=== PATIENT | female | born 1955 | race Two or more races ===

== ENCOUNTER 2018-11-06 16:47 | Inpatient (IN) | payer BC ==
[~2018-11-06] VITALS: Ht 167.6 cm; Wt 72.1 kg
[2018-11-06 18:43] VITALS: BP 155/67; PULSE 86; RESP 18
[2018-11-06 18:53] VITALS: BP 155/67; PULSE 82; RESP 16
[2018-11-06 19:52] VITALS: Ht 167.6 cm; Wt 72.1 kg
[2018-11-06] MEDS ORDERED: morphine 2 MG INJ IV PRN (20:00)
[2018-11-06] MEDS ORDERED: hydrALAzine 20 MG INJ IV PRN (20:00)
[2018-11-06] MEDS ORDERED: ONDANSETRON 4 MG INJ IV PRN (20:00)
[2018-11-06 20:22] VITALS: BP 152/72; PULSE 80; RESP 18
[2018-11-06] MEDS: DEXTROSE 5%-0.45% NACL 1,000 ML IV SCH (21:07)
[2018-11-07 02:24] VITALS: BP 148/71; RESP 18
[2018-11-07] MEDS: PANTOPRAZOLE 40 MG INJ IV SCH (06:08)
[2018-11-07 08:20] VITALS: BP 136/65; PULSE 75; RESP 18
[2018-11-07] MEDS: DEXTROSE 5%-0.45% NACL 1,000 ML IV SCH ×2 (10:18→10:56)
[2018-11-07 14:00] VITALS: BP 155/72; PULSE 75; RESP 18
--- NOTE | 2018-11-07 14:00 | HP ---
DOMINGO MARTINEZ 11/07/18 1400: Date/Time of Note Date/Time of Note DATE: 11/07/18 TIME: 14:00 Assessment/Plan VTE Prophylaxis Risk score (from [facility])>0 risk: 3 SCD applied (from [facility]): Yes Pharmacological prophylaxis: NA/contraindicated Pharm contraindication: low risk/ambulating Lines/Catheters IV Catheter Type (from [facility]): Saline [place] Assessment/Plan Hospital Course 1. Resolving SBO 2. Normocytic normochromic anemia 3. Hypertension 4. RADHA, today cr. 1.1, unknown the baseline. This visit is first to this hospital. Per reccord review pt has creatinine was 1.2 on 11/05/2018 5. Hx of hysterectomy and hernia repair 6. Hx of gastric bypass 7. Hx of peritonitis 8. former smoker Assessment/Plan -GI prophylaxis Protonix po _GI consult dr Coates -DVT prophylaxis SCD -pain control -clear liquid diet -last stool 11/03, pt is passing gas -IV fluids D5 NS -Dr Cano is a surgical consult -ambulate TID Result Diagram: 11/07/18 0445 11/07/18 0445 Results 24hrs Laboratory Tests Test 11/07/18 04:45 White Blood Count 9.0 Red Blood Count 3.99 L Hemoglobin 11.8 L Hematocrit 36.2 L Mean Corpuscular Volume 90.7 Mean Corpuscular Hemoglobin 29.6 Mean Corpuscular Hemoglobin Concent 32.6 Red Cell Distribution Width 12.5 Platelet Count 250 Mean Platelet Volume 10.0 Immature Granulocytes % 0.300 Neutrophils % 59.1 Lymphocytes % 31.7 Monocytes % 6.7 Eosinophils % 2.0 Basophils % 0.2 Nucleated Red Blood Cells % 0.0 Immature Granulocytes # 0.030 Neutrophils # 5.3 Lymphocytes # 2.9 Monocytes # 0.6 Eosinophils # 0.2 Basophils # 0.0 Nucleated Red Blood Cells # 0.0 Sodium Level 143 Potassium Level 4.2 Chloride Level 111 H Carbon Dioxide Level 27 Anion Gap 5 Blood Urea Nitrogen 17 Creatinine 1.11 H Est Glomerular Filtrat Rate mL/min 49 L Glucose Level 100 Calcium Level 8.7 HPI/ROS Admit Date/Time Admit Date/Time Nov 06, 2018 at 18:31 Hx of Present Illness This 63 y,o female was transferred from [facility] on 11/07/2018 per insurance purposes. She has medical history of hypertension, hx of gastric bypass, colostomy, 2 hernia repair and hysterectomy. Pt was seen in [facility] on because of abdominal pain. Pt. was kept NPO there, she refused NG tube, CT scan abdomen showed filled intestines with fluid level and evidence of previous surgeries. laboratory results revealed anemia with Hg 11.8 and elevated cr. 1.2 on 11/05/2018 ROS Gastrointestinal: nausea, passing stool (small today) PMH/Family/Social Past Medical History Medical History: hypertension Medications Current Medications Dextrose/Sodium Chloride 1,000 ml @ 70 mls/hr [id number] IV Last administered on 11/07/18at 10:56; Admin Dose 70 MLS/HR; Start 11/06/18 at 20:00 Ondansetron HCl (Zofran Inj) 4 mg Q6H PRN IV NAUSEA AND/OR VOMITING; Start 11/06/18 at 20:00 Morphine Sulfate (morphine) 2 mg Q4H PRN IV SEVERE PAIN LEVEL 7-10; Start 11/06/18 at 20:00 Pantoprazole (Protonix Iv) 40 mg DAILY@06 IV Last administered on 11/07/18at 06:08; Admin Dose 40 MG; Start 11/07/18 at 06:00 Hydralazine HCl (Apresoline) 5 mg Q6H PRN IV ELEVATED BLOOD PRESSURE; Start 11/06/18 at 20:00 Coded Allergies: No Known Allergy (Unverified , 11/06/18) Past Surgical History Past Surgical Hx: other (hysterectomy and hernia repair) Family History Significant Family History: no pertinent family hx Social History Alcohol Use: none Smoking Status: Former smoker Drug Use: none Exam/Review of Systems Vital Signs Vitals Vital Signs Date Temp Pulse Resp B/P (MAP) Pulse Ox O2 O2 Flow FiO2 Time Delivery Rate 11/07/18 98.0 75 18 136/65 96 Room Air 08:20 (88) Intake and Output 11/06/18 11/06/18 11/07/18 1515:00 23:00 07:00 IntakeIntake Total 560 ml BalanceBalance 560 ml Exam Constitutional: alert, oriented Psych: no complaints ENMT: nl external ears & nose Neck: supple Respiratory: clear to auscultation, normal air movement Cardiovascular: regular rate and rhythm Gastrointestinal: soft, rebound or guarding, splenomegaly, surgical scars Genitourinary - Female: CVA tenderness; No nl adnexae, No nl external genitalia, No CMT, No uterus, No other ECTOR JOHNS MD 11/08/18 1618: Assessment/Plan Assessment/Plan Assessment/Plan seen and examined with TAPE TRANSFERRER NPO iv fluids gi/surgery consult Result Diagram: 11/07/18 0445 11/07/18 0445 PMH/Family/Social Past Medical History Coded Allergies: No Known Allergy (Unverified , 11/06/18) DOMINGO MARTINEZ Nov 07, 2018 14:00 ECTOR JOHNS MD Nov 08, 2018 16:18
[2018-11-07] MEDS ORDERED: BISACODYL 10 MG SUPP PR STA (14:36)
[2018-11-07 20:40] VITALS: BP 132/78; PULSE 77; RESP 20
--- NOTE | 2018-11-07 20:48 | CONS ---
DATE OF ADMISSION: 11/06/2018 DATE OF CONSULTATION: Dear Dr. Walls: Thank you for asking me to see your patient in consultation. HISTORY OF PRESENT ILLNESS: The patient is a 63-year-old pleasant Gren[place] female who was originally at [facility] for abdominal pain and nausea. The patient was diagnosed to have a small-bowel obstruction. She declined NG tube and was subsequently transferred to this facility for further man agement. The patient was interrogated with the by her side. The spoke Tajik. He says no nausea, no vomiting. She definitely passed a flatus. Abdominal pain is very minimal. No ch est pain, no shortness of breath, no fever, no or CASE MANAGER problem. PAST MEDICAL HISTORY: The patient had multiple surgeries on her lower abdomen secondary to hernia. She also had a gastric bypass surgery. History of hypertension. SOCIAL HISTORY: Former smoker, does not drink alcohol, no recreational drug. PHYSICAL EXAMINATION: VITAL SIGNS: Stable. GENERAL: Pleasant, not in any distress. CARDIOVASCULAR: No murmur, gallop or click. LUNGS: Clear. ABDOMEN: Soft. Midline surgical scar seen extending from the umbilicus down to the suprapubic. [place] el sounds heard. Abdomen is nondistended, nontender. EXTREMITIES: No edema. CENTRAL NERVOUS SYSTEM: Grossly within normal limits. LABORATORY DATA: CBC is stable. BNP is grossly within normal limits except for the GFR which is 45. IMPRESSION: 1. Small-bowel obstruction, clinically seems to have improved. 2. Normochromic normocytic anemia. 3. Mild renal insufficiency. 4. Hypertension. 5. Status post gastric bypass surgery. 6. History of peritonitis in the past. 7. Status post hysterectomy and hernia repair. 8. History of nicotine usage. PLAN: At this point, we will give her Dulcolax suppository. If she has a good bowel movement, then we will start her on a clear liquid diet and advance it as tolerated by the patient. In the interim, we will get a KUB done to make sure that the small-bowel obstruction has improved. Dictated By: KATRINA GILL/NTS Conf#: [id number] DID#: [id number] CC: ECTOR JOHNS; NIKA WALLS MD;*End*
[2018-11-08] MEDS: DEXTROSE 5%-0.45% NACL 1,000 ML IV SCH ×2 (00:44→16:18)
[2018-11-08 02:10] VITALS: BP 135/76; PULSE 71; RESP 20
[2018-11-08] MEDS: PANTOPRAZOLE 40 MG INJ IV SCH (05:36)
[2018-11-08 08:01] VITALS: BP 138/63; PULSE 63; RESP 18
--- NOTE | 2018-11-08 12:24 | PN ---
DOMINGO ESCOBAR 11/08/18 1224: Date/Time of Note Date/Time of Note DATE: 11/08/18 TIME: 12:22 Assessment/Plan VTE Prophylaxis Risk score (from Ns)>0 risk: 3 SCD applied (from [facility] [place] [facility]): No SCD contraindicated: low risk/ambulating Pharmacological prophylaxis: NA/contraindicated Pharm contraindication: low risk/ambulating Lines/Catheters IV Catheter Type (from [facility]): Peripheral IV Assessment/Plan Hospital Course 1. Resolving SBO 2. Normocytic normochromic anemia 3. Hypertension 4. RADHA, today cr. 1.1, unknown the baseline. This visit is [facility] to [facility]. Per record review pt has creatinine was 1.2 on 11/05/2018 5. Hx of hysterectomy and hernia repair 6. Hx of gastric bypass 7. Hx of peritonitis 8. former smoker Assessment/Plan -creatinine goes down -KUB abdomen pending, pt is still NPO -GI prophylaxis Protonix po -GI consult dr Coates is appreciated -DVT prophylaxis SCD -pain control -last stool 11/03, pt is passing gas -c/w IV fluids D5 NS -Dr Cano is a surgical consult unable to see her -ambulate TID Result Diagram: 11/08/18 0442 11/08/18 0442 Results 24hrs Laboratory Tests Test 11/08/18 04:42 White Blood Count 9.8 Red Blood Count 3.93 L Hemoglobin 11.7 L Hematocrit 35.3 L Mean Corpuscular Volume 89.8 Mean Corpuscular Hemoglobin 29.8 Mean Corpuscular Hemoglobin Concent 33.1 Red Cell Distribution Width 12.3 Platelet Count 248 Mean Platelet Volume 10.2 Immature Granulocytes % 0.200 Neutrophils % 63.7 Lymphocytes % 27.9 Monocytes % 5.8 Eosinophils % 2.2 Basophils % 0.2 Nucleated Red Blood Cells % 0.0 Immature Granulocytes # 0.020 Neutrophils # 6.2 Lymphocytes # 2.7 Monocytes # 0.6 Eosinophils # 0.2 Basophils # 0.0 Nucleated Red Blood Cells # 0.0 Sodium Level 143 Potassium Level 4.2 Chloride Level 111 H Carbon Dioxide Level 28 Anion Gap 4 L Blood Urea Nitrogen 14 Creatinine 1.02 H Est Glomerular Filtrat Rate mL/min 54 L Glucose Level 102 Calcium Level 8.9 Subjective 24 Hr Interval Summary Gastrointestinal: constipation ( 5 days) Exam/Review of Systems Exam Vitals Vital Signs Date Temp Pulse Resp B/P (MAP) Pulse Ox O2 O2 Flow FiO2 Time Delivery Rate 11/08/18 97.8 63 18 138/63 93 08:01 (88) 11/07/18 Room Air 08:20 Intake and Output 11/07/18 11/07/18 11/08/18 1515:00 23:00 07:00 IntakeIntake Total 440 ml 1300 ml BalanceBalance 440 ml 1300 ml Constitutional: alert, oriented Respiratory: clear to auscultation Cardiovascular: regular rate and rhythm Gastrointestinal: soft, nl liver, spleen, non-tender, ascites, bowel sounds (4 quadrants), distended, firm, hepatomegaly, mass, rebound or guarding, splenomegaly, surgical scars, tender, other Results Result Diagram: 11/08/182 11/08/18 0442 Results 24hrs Laboratory Tests Test 11/08/18 04:42 White Blood Count 9.8 Red Blood Count 3.93 L Hemoglobin 11.7 L Hematocrit 35.3 L Mean Corpuscular Volume 89.8 Mean Corpuscular Hemoglobin 29.8 Mean Corpuscular Hemoglobin Concent 33.1 Red Cell Distribution Width 12.3 Platelet Count 248 Mean Platelet Volume 10.2 Immature Granulocytes % 0.200 Neutrophils % 63.7 Lymphocytes % 27.9 Monocytes % 5.8 Eosinophils % 2.2 Basophils % 0.2 Nucleated Red Blood Cells % 0.0 Immature Granulocytes # 0.020 Neutrophils # 6.2 Lymphocytes # 2.7 Monocytes # 0.6 Eosinophils # 0.2 Basophils # 0.0 Nucleated Red Blood Cells # 0.0 Sodium Level 143 Potassium Level 4.2 Chloride Level 111 H Carbon Dioxide Level 28 Anion Gap 4 L Blood Urea Nitrogen 14 Creatinine 1.02 H Est Glomerular Filtrat Rate mL/min 54 L Glucose Level 102 Calcium Level 8.9 Medications Medication Current Medications Dextrose/Sodium Chloride 1,000 ml @ 70 mls/hr [id number] IV Last administered on 11/08/18at 00:44; Admin Dose 70 MLS/HR; Start 11/06/18 at 20:00 Ondansetron HCl (Zofran Inj) 4 mg Q6H PRN IV NAUSEA AND/OR VOMITING; Start 11/06/18 at 20:00 Morphine Sulfate (morphine) 2 mg Q4H PRN IV SEVERE PAIN LEVEL 7-10; Start 11/06/18 at 20:00 Pantoprazole (Protonix Iv) 40 mg DAILY@06 IV Last administered on 11/08/18at 05:36; Admin Dose 40 MG; Start 11/07/18 at 06:00 Hydralazine HCl (Apresoline) 5 mg Q6H PRN IV ELEVATED BLOOD PRESSURE; Start 11/06/18 at 20:00 ECTOR JOHNS MD 11/08/18 1617: Assessment/Plan Assessment/Plan Assessment/Plan doing well kusourav neg advance clears, spoke to dr coates Result Diagram: 11/08/18 0442 11/08/18 0442 DOMINGO MARTINEZ Nov 08, 2018 12:24 ECTOR JOHNS MD Nov 08, 2018 16:17
[2018-11-08 15:18] VITALS: BP 159/72; PULSE 62; RESP 18
--- NOTE | 2018-11-08 17:49 | CONS ---
Assessment/Plan Assessment/Plan Hospital Course (Demo Recall) Interval Hx- The patient is a 63-year-old pleasant Estonian female who was originally at [facility] for abdominal pain and nausea. The patient was diagnosed to have a small-bowel obstruction. She declined NG tube and was subsequently transferred to this facility for further management. IMPRESSION: 1. Small-bowel obstruction, clinically seems to have improved, had one soft BM after suppository per patient. 2. Normochromic normocytic anemia. 3. Mild renal insufficiency. 4. Hypertension. 5. Status post gastric bypass surgery. 6. History of peritonitis in the past. 7. Status post hysterectomy and hernia repair. 8. History of nicotine usage. PLAN: At this point, we will continue to monitor the patient X ray abdomen-unremarkable On ice chips-tolerating PP- GI prophylaxis Antiemetics Consultation Date/Type/Reason Admit Date/Time Nov 06, 2018 at 18:31 Initial Consult Date Date/Time of Note DATE: 11/08/18 TIME: 17:42 Exam/Review of Systems Exam Vitals Vital Signs Date Temp Pulse Resp B/P (MAP) Pulse Ox O2 O2 Flow FiO2 Time Delivery Rate 11/08/18 97.8 62 18 159/72 95 15:18 (101) 11/07/18 Room Air 08:20 Intake and Output 11/07/18 11/07/18 11/08/18 1515:00 23:00 07:00 IntakeIntake Total 440 ml 1300 ml BalanceBalance 440 ml 1300 ml Constitutional: alert, oriented, well developed Psych: no complaints Head: normocephalic, atraumatic Eyes: nl conjunctiva, EOMI ENMT: nl external ears & nose Neck: supple Respiratory: clear to auscultation, normal air movement Cardiovascular: regular rate and rhythm, nl pulses Gastrointestinal: soft, non-tender, surgical scars (mid abdomen) Musculoskeletal: nl extremities to inspection Extremities: normal pulses Neurological: INFECTION PREVENTIONIST II-XII intact Skin: nl turgor Lymph: nl lymph nodes Results Result Diagram: 11/08/182 11/08/182 Results 24hrs Laboratory Tests Test 11/08/18 04:42 White Blood Count 9.8 Red Blood Count 3.93 L Hemoglobin 11.7 L Hematocrit 35.3 L Mean Corpuscular Volume 89.8 Mean Corpuscular Hemoglobin 29.8 Mean Corpuscular Hemoglobin Concent 33.1 Red Cell Distribution Width 12.3 Platelet Count 248 Mean Platelet Volume 10.2 Immature Granulocytes % 0.200 Neutrophils % 63.7 Lymphocytes % 27.9 Monocytes % 5.8 Eosinophils % 2.2 Basophils % 0.2 Nucleated Red Blood Cells % 0.0 Immature Granulocytes # 0.020 Neutrophils # 6.2 Lymphocytes # 2.7 Monocytes # 0.6 Eosinophils # 0.2 Basophils # 0.0 Nucleated Red Blood Cells # 0.0 Sodium Level 143 Potassium Level 4.2 Chloride Level 111 H Carbon Dioxide Level 28 Anion Gap 4 L Blood Urea Nitrogen 14 Creatinine 1.02 H Est Glomerular Filtrat Rate mL/min 54 L Glucose Level 102 Calcium Level 8.9 Medications Medication Current Medications Dextrose/Sodium Chloride 1,000 ml @ 70 mls/hr [id number] IV Last administered on 11/08/18at 16:18; Admin Dose 70 MLS/HR; Start 11/06/18 at 20:00 Ondansetron HCl (Zofran Inj) 4 mg Q6H PRN IV NAUSEA AND/OR VOMITING; Start 11/06/18 at 20:00 Morphine Sulfate (morphine) 2 mg Q4H PRN IV SEVERE PAIN LEVEL 7-10; Start 11/06/18 at 20:00 Pantoprazole (Protonix Iv) 40 mg DAILY@06 IV Last administered on 11/08/18at 05:36; Admin Dose 40 MG; Start 11/07/18 at 06:00 Hydralazine HCl (Apresoline) 5 mg Q6H PRN IV ELEVATED BLOOD PRESSURE; Start 11/06/18 at 20:00 GILL BAIG NP Nov 08, 2018 17:49
[2018-11-08 19:27] VITALS: BP 137/67; PULSE 77; RESP 16
[2018-11-09 01:32] VITALS: BP 160/73; PULSE 63; RESP 16
[2018-11-09] MEDS: PANTOPRAZOLE 40 MG INJ IV SCH (05:31)
[2018-11-09] MEDS: DEXTROSE 5%-0.45% NACL 1,000 ML IV SCH (05:31)
[2018-11-09 07:30] VITALS: BP 140/63; PULSE 58; RESP 18
--- NOTE | 2018-11-09 08:09 | CONS ---
Assessment/Plan Assessment/Plan Hospital Course (Demo Recall) 63 yo female presented from OSH with SBO Interval hx: pt states she is passing gas. Tolerating clear liquid diet. BM yesterday, moderate amount,brown and soft. No nausea or abdominal pain. She has mild pain in lower abdomen when palpated. 1. Small-bowel obstruction -Improved 2. Normochromic normocytic anemia. 3. Mild renal insufficiency. 4. Hypertension. 5. Status post gastric bypass surgery. 6. History of peritonitis in the past. 7. Status post hysterectomy and hernia repair. 8. History of nicotine usage. KUB 11/08 unremarkable PLAN: Full liquid diet, advance as tolerated. Pt and son advised that if pt feels nausea or abd pain with diet to stop eating and let RN know. Promote ambulation Pt examined and plan of care discussed with Dr. Coates Consultation Date/Type/Reason Admit Date/Time Nov 06, 2018 at 18:31 Initial Consult Date Date/Time of Note DATE: 11/09/18 TIME: 08:02 Exam/Review of Systems Exam Vitals Vital Signs Date Temp Pulse Resp B/P (MAP) Pulse Ox O2 O2 Flow FiO2 Time Delivery Rate 11/09/18 98.4 58 18 140/63 100 Room Air 07:30 (88) Intake and Output 11/08/18 11/08/18 11/09/18 1515:00 23:00 07:00 IntakeIntake Total 890 ml 900 ml BalanceBalance 890 ml 900 ml Constitutional: alert, oriented Psych: no complaints Head: normocephalic Eyes: PERRL Respiratory: clear to auscultation Cardiovascular: regular rate and rhythm Gastrointestinal: soft, other (Mild TTP in lower quadrant) Musculoskeletal: nl gait and stance Neurological: nl mental status Results Result Diagram: 11/09/18 0501 11/09/18 0501 Results 24hrs Laboratory Tests Test 11/09/18 05:01 White Blood Count 9.0 Red Blood Count 3.73 L Hemoglobin 11.1 L Hematocrit 33.9 L Mean Corpuscular Volume 90.9 Mean Corpuscular Hemoglobin 29.8 Mean Corpuscular Hemoglobin Concent 32.7 Red Cell Distribution Width 12.4 Platelet Count 255 Mean Platelet Volume 10.2 Immature Granulocytes % 0.600 H Neutrophils % 65.3 Lymphocytes % 25.9 Monocytes % 5.6 Eosinophils % 2.4 Basophils % 0.2 Nucleated Red Blood Cells % 0.0 Immature Granulocytes # 0.050 H Neutrophils # 5.9 Lymphocytes # 2.3 Monocytes # 0.5 Eosinophils # 0.2 Basophils # 0.0 Nucleated Red Blood Cells # 0.0 Sodium Level 142 Potassium Level 4.4 Chloride Level 108 Carbon Dioxide Level 27 Anion Gap 7 Blood Urea Nitrogen 12 Creatinine 1.13 H Est Glomerular Filtrat Rate mL/min 48 L Glucose Level 103 Calcium Level 8.9 Medications Medication Current Medications Dextrose/Sodium Chloride 1,000 ml @ 70 mls/hr [id number] IV Last administered on 11/09/18at 05:31; Admin Dose 70 MLS/HR; Start 11/06/18 at 20:00 Ondansetron HCl (Zofran Inj) 4 mg Q6H PRN IV NAUSEA AND/OR VOMITING; Start 11/06/18 at 20:00 Morphine Sulfate (morphine) 2 mg Q4H PRN IV SEVERE PAIN LEVEL 7-10; Start 11/06/18 at 20:00 Pantoprazole (Protonix Iv) 40 mg DAILY@06 IV Last administered on 11/09/18at 05:31; Admin Dose 40 MG; Start 11/07/18 at 06:00 Hydralazine HCl (Apresoline) 5 mg Q6H PRN IV ELEVATED BLOOD PRESSURE; Start 11/06/18 at 20:00 NGOC PITT Nov 09, 2018 08:09
--- NOTE | 2018-11-09 12:34 | PN ---
Date/Time of Note Date/Time of Note DATE: 11/09/18 TIME: 12:30 Assessment/Plan VTE Prophylaxis Risk score (from Ns)>0 risk: 2 SCD applied ([place] [facility] No SCD contraindicated: low risk/ambulating Pharmacological prophylaxis: NA/contraindicated Pharm contraindication: low risk/ambulating Lines/Catheters IV Catheter Type (from [facility]): Peripheral IV Assessment/Plan Hospital Course 1. Small-bowel obstruction, clinically seems to have improved, had one soft BM after suppository per patient. 2. Normochromic normocytic anemia. 3. Mild renal insufficiency. 4. Hypertension. 5. Status post gastric bypass surgery. 6. History of peritonitis in the past. 7. Status post hysterectomy and hernia repair. 8. History of nicotine usage. plan - advance diet dc planning if tolerated diet Result Diagram: 11/09/18 0501 11/09/18 0501 Results 24hrs Laboratory Tests Test 11/09/18 05:01 White Blood Count 9.0 Red Blood Count 3.73 L Hemoglobin 11.1 L Hematocrit 33.9 L Mean Corpuscular Volume 90.9 Mean Corpuscular Hemoglobin 29.8 Mean Corpuscular Hemoglobin Concent 32.7 Red Cell Distribution Width 12.4 Platelet Count 255 Mean Platelet Volume 10.2 Immature Granulocytes % 0.600 H Neutrophils % 65.3 Lymphocytes % 25.9 Monocytes % 5.6 Eosinophils % 2.4 Basophils % 0.2 Nucleated Red Blood Cells % 0.0 Immature Granulocytes # 0.050 H Neutrophils # 5.9 Lymphocytes # 2.3 Monocytes # 0.5 Eosinophils # 0.2 Basophils # 0.0 Nucleated Red Blood Cells # 0.0 Sodium Level 142 Potassium Level 4.4 Chloride Level 108 Carbon Dioxide Level 27 Anion Gap 7 Blood Urea Nitrogen 12 Creatinine 1.13 H Est Glomerular Filtrat Rate mL/min 48 L Glucose Level 103 Calcium Level 8.9 Subjective 24 Hr Interval Summary Free Text/Dictation Take clear liquids now at full liquids Had a BM yesterday passing gas Exam/Review of Systems Exam Vitals Vital Signs Date Temp Pulse Resp B/P (MAP) Pulse Ox O2 O2 Flow FiO2 Time Delivery Rate 11/09/18 98.4 58 18 140/63 100 Room Air 07:30 (88) Intake and Output 11/08/18 11/08/18 11/09/18 1515:00 23:00 07:00 IntakeIntake Total 890 ml 900 ml BalanceBalance 890 ml 900 ml Exam Gastrointestinal: soft, non-tender, surgical scars (mid abdomen) +bs Results Results 24hrs Laboratory Tests Test 11/09/18 05:01 White Blood Count 9.0 Red Blood Count 3.73 L Hemoglobin 11.1 L Hematocrit 33.9 L Mean Corpuscular Volume 90.9 Mean Corpuscular Hemoglobin 29.8 Mean Corpuscular Hemoglobin Concent 32.7 Red Cell Distribution Width 12.4 Platelet Count 255 Mean Platelet Volume 10.2 Immature Granulocytes % 0.600 H Neutrophils % 65.3 Lymphocytes % 25.9 Monocytes % 5.6 Eosinophils % 2.4 Basophils % 0.2 Nucleated Red Blood Cells % 0.0 Immature Granulocytes # 0.050 H Neutrophils # 5.9 Lymphocytes # 2.3 Monocytes # 0.5 Eosinophils # 0.2 Basophils # 0.0 Nucleated Red Blood Cells # 0.0 Sodium Level 142 Potassium Level 4.4 Chloride Level 108 Carbon Dioxide Level 27 Anion Gap 7 Blood Urea Nitrogen 12 Creatinine 1.13 H Est Glomerular Filtrat Rate mL/min 48 L Glucose Level 103 Calcium Level 8.9 Medications Medication Current Medications Dextrose/Sodium Chloride 1,000 ml @ 70 mls/hr [id number] IV Last administered on 11/09/18at 05:31; Admin Dose 70 MLS/HR; Start 11/06/18 at 20:00 Ondansetron HCl (Zofran Inj) 4 mg Q6H PRN IV NAUSEA AND/OR VOMITING; Start 11/06/18 at 20:00 Morphine Sulfate (morphine) 2 mg Q4H PRN IV SEVERE PAIN LEVEL 7-10; Start 11/06/18 at 20:00 Pantoprazole (Protonix Iv) 40 mg DAILY@06 IV Last administered on 11/09/18at 05:31; Admin Dose 40 MG; Start 11/07/18 at 06:00 Hydralazine HCl (Apresoline) 5 mg Q6H PRN IV ELEVATED BLOOD PRESSURE; Start 11/06/18 at 20:00 ECTOR JOHNS MD Nov 09, 2018 12:34
[2018-11-09] MEDS ORDERED: DOCU-144 PO (12:36)
--- NOTE | 2018-11-09 12:36 | PDOCDIS ---
Discharge Instructions DIAGNOSIS Discharge Diagnosis SBO resolved mild RADHA CONDITION [id number] Patient Condition: [id number] Fair HOME CARE INSTRUCTIONS: [id number] Diet Instructions: [id number] Regular ACTIVITY: [id number] Activity Restrictions: [id number] No Restrictions Slowly Increase Activity Rest between Activity Avoid heavy lifting [id number] Bathing Restrictions: [id number] Shower FOLLOW UP/APPOINTMENTS Follow-up Plan Return to the ER if has severe abdominal pain nausea vomiting Follow with PCP in about 1-[address] Coates in the 3-4 weeks keep Well-hydrated. ECTOR JOHNS MD Nov 09, 2018 12:36
--- NOTE | 2018-11-09 13:06 | DS ---
DATE OF ADMISSION: 11/06/2018 DATE OF DISCHARGE: REASON FOR ADMISSION: SBO. HISTORY OF PRESENTING ILLNESS: This is a 63-year-old female transferred from [facility] on __ ___ secondary to insurance purposes. She has medical history of hypertension, gastric bypass, colost srikanth, 2 hernia repairs and hysterectomy. She went to [facility] on 05/05/2018 because of abdom inal pain. The patient had a CT of the abdomen and pelvis there that showed moderate dilatation of s everal fluid-filled small bowel loops in the right lower quadrant up to apparent caliber transition p oint, associated mesenteric edema suspicious for small-bowel obstruction. The patient was seen by ge neral surgery at [facility]. The patient had refused NG tube. The surgeon at [facility] did not feel that the patient needed any surgical treatment. The patient was transferred to [facility] due to insurance reasons. The patient was seen by GI doctor, Dr. Jaxon dash ng hospitalization stay, initially kept n.p.o. and was started on IV fluids. Slowly, the patient was making progress, started having bowel movements and also was passing gas. The patient was slowly ad vanced from clear liquids to full liquids and then started on soft diet. The patient was able to justice erate soft diet without any nausea or vomiting and the patient was feeling much better, currently sta ble to be discharged home. The patient had a creatinine of 1.11 which peaked up to 1.13, not sure if the patient is back to baseline. The patient will follow up with the PCP as an outpatient. FINAL DISCHARGE DIAGNOSES: 1. Small-bowel obstruction, improved conservatively. The patient did not require any surgical treat ment. 2. Normocytic normochromic anemia. 3. Mild renal insufficiency, questionable chronic. We will follow up with PCP as an outpatient. 4. Hypertension. 5. History of gastric bypass surgery. 6. History of peritonitis in the past. 7. History of hysterectomy and hernia repair. 8. History of nicotine usage. DISCHARGE CONDITION: Stable. DISCHARGE DIET: Soft diet. DISCHARGE MEDICATIONS: Colace 100 mg p.o. b.i.d. p.r.n. constipation. DISCHARGE INSTRUCTIONS: The patient was instructed to follow up with PCP in about 1 to 2 weeks. The patient was instructed to return to the ER if she has severe abdominal pain, nausea, vomiting, fever s and chills. The patient will also follow up with Dr. Malhotra in 3 to 4 weeks. Dictated By: ECTOR HARRISON/NANO Conf#: [id number] DID#: [id number] CC: KATRINA MALHOTRA MD;*EndCC*
[2018-11-09 14:39] VITALS: BP 140/76; PULSE 65; RESP 18
== END 2018-11-09 15:30 | disposition home or self-care (01) | DRG 389 ==
LOC: MS1 18:31
PROVIDERS: ADMIT Internal Medicine; ATTEND Internal Medicine
DX: K56.609 Unspecified intestinal obstruction, unspecified as to partial versus complete obstruction (principal); N17.9 Acute kidney failure, unspecified; D64.9 Anemia, unspecified; I10 Essential (primary) hypertension; Z98.84 Bariatric surgery status; Z87.891 Personal history of nicotine dependence
CPT/HCPCS: 74018; 80048; 85025; C9113; J7042